=== PATIENT | male | born 1955 | race Hispanic/Latino ===

== ENCOUNTER 2021-10-25 10:06 | Emergency (ER) | payer OTHER ==
--- OUTSIDE RECORDS SUMMARY | 2021-10-25 10:08 | XMS REPORT | Continuity of Care Document ---
:1955 Author Organization [facility] Address [address] [place] [address] Dr. Broderick [address] [place] [id number] Care Team Providers Name Role Phone LUIS ALFREDO Attending Clinician Unavailable LUIS ALFREDO Admitting Clinician Unavailable Payers Payer Name Policy Type Policy Number Effective Date Expiration Date S ource Problems This patient has no known problems. Allergies, Adverse Reactions, Alerts This patient has no known allergies or adverse reactions. Medications This patient has no known medications. Procedures This patient has no known procedures. Encounters Start End Encounter Admission Attending Care Care Encounter Source Date/Time Date/Time Type Type Clinicians Facility Department ID 2021-08-22 2021-08-22 Outpatient [facility] [address] 02:28:00 02:28:00 [id number] 2021-04-27 2021-04-27 Outpatient [facility] [address] 11:29:00 11:29:00 HN [id number] Results This patient has no known results.
[2021-10-25 10:57] LABS: Absolute Lymphocytes (CBC) 0.3 K/uL (0.7-4.9); Hematocrit 32.5 % (39.6-49.0); Lymphocytes % 5.9 % (15.3-44.8); RBC Red Blood Cell Count 3.72 M/uL (4.33-5.43)
[2021-10-25] MEDS ORDERED: HYDROMORPHONE HCL 1 MG/ML INJ ONE (10:58)
[2021-10-25] MEDS ORDERED: NA CHLORIDE 0.9% 1,000 ML ONE (10:59)
[2021-10-25] MEDS ORDERED: ONDANSETRON 4 MG/2 ML VIAL ONE (10:59)
[2021-10-25 11:24] LABS: Potassium 4.1 mmol/L (3.5-5.1)
[2021-10-25 11:46] LABS: Blood Morphology Comment NOT SEEN (NOT SEEN); Platelet Estimate DECR
--- NOTE | 2021-10-25 11:53 | RAD REPORT ---
EXAM DESCRIPTION: CT - Head Brain Wo Cont - 10/25/2021 11:41 am CLINICAL HISTORY: Brain/LABEL PASTER neoplasm, monitor COMPARISON: No comparisons TECHNIQUE: All CT scans are performed using dose optimization technique as appropriate and may inclu de automated exposure control or mA/KV adjustment according to patient size. FINDINGS: No intracranial hemorrhage, hydrocephalus or extra-axial fluid collection.No areas of brai n edema or evidence of midline shift. Small foci of white matter hypoattenuation within the deep whit e matter of the frontal lobes bilaterally. Mild chronic small vessel ischemic changes. The paranasal sinuses and mastoids are clear. The calvarium is intact. IMPRESSION: No acute intracranial abnormality. 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 Background of chronic small vessel ischemic changes.
--- NOTE | 2021-10-25 12:05 | RAD REPORT ---
EXAM DESCRIPTION: CT - Soft Tissue Neck W/Contr CLINICAL HISTORY: dysphagia, s/p radiation COMPARISON: No comparisons TECHNIQUE All CT scans are performed using dose optimization technique as appropriate and may includ e automated exposure control or mA/KV adjustment according to patient size. FINDINGS: Postradiation changes are present at the neck. Mottled fluid and air in the regio no parot id or submandibular masses are identified. No lymphadenopathy is identified. The lung apices are sanju r. The thyroid nodules. N of the right tonsillar fossa. This is nonspecific. No fluid collections sima ntified. No radiopaque foreign bodies. Mild thickening within the maxillary sinus on the right. Multilevel degenerative changes are present in the spine. IMPRESSION: Mottled air and fluid at the right tonsillar fossa is nosnpecific. This could reflect tr eatment related changes. Recommend direct inspection. No other specific CT findings to explain dyspha anthony.
--- NOTE | 2021-10-25 12:34 | ER ---
Nurse's Notes [facility] Name: Sam Camacho Age: 66 yrs Sex: Male : 1955 Arrival Date: 10/25/2021 Time: 10:07 Bed 4 Private MD: Diagnosis: Dysphagia, unspecified;Dehydration Presentation: 10/25 10:24 Chief complaint: Patient states: "I have cancer and tumors in my head and I haven't aa5 been able to sleep because the pain in my head is so bad". Pt c/o pain to right side of head since July but got worse 2 days ago. Pt also c/o pain to right jaw pain, reports jaw surgery back in July 2021. 10:24 Coronavirus screen: At this time, the client does not indicate any symptoms associated aa5 with coronavirus-19. Ebola Screen: No symptoms or risks identified at this time. Initial Sepsis Screen: Does the patient meet any 2 criteria? No. Patient's initial sepsis screen is negative. Does the patient have a suspected source of infection? No. Patient's initial sepsis screen is negative. Risk Assessment: Do you want to hurt yourself or someone else? Patient reports no desire to harm self or others. Onset of symptoms was October 23, 2021. 10:24 Acuity: JOANNE 3 aa5 10:24 Method Of Arrival: Ambulatory aa5 Triage Assessment: 10:30 Headache History: The patient has had previous headaches and this one is similar to bp previous episodes. General: Appears in no apparent distress. uncomfortable, Behavior is cooperative, appropriate for age, anxious. Pain: Complains of pain in head Pain currently is 8 out of 10 on a pain scale. Pain began 2-3 days ago. Also complains of no other associated symptoms. EENT: No deficits noted. Neuro: Reports headache. Cardiovascular: No deficits noted. Respiratory: No deficits noted. GI: No signs and/or symptoms were reported involving the gastrointestinal system. : No signs and/or symptoms were reported regarding the genitourinary system. Derm: No deficits noted. Musculoskeletal: No deficits noted. Historical: - Allergies: 10:27 No Known Allergies; aa5 - PMHx: 10:27 Brain Tumors; Cancer; Hypertensive disorder; aa5 10:30 Chemotherapy; Radiation; aa5 - PSHx: 10:27 Jaw Surgery; aa5 - Immunization history:: Adult Immunizations unknown. - Social history:: Smoking status: Patient reports the use of cigarette tobacco products, denies chronic smoking, but will smoke occasionally. - Family history:: not pertinent. - Hospitalizations: : No recent hospitalization is reported. Screenin:30 Abuse screen: Denies threats or abuse. Denies injuries from another. Nutritional bp screening: No deficits noted. Tuberculosis screening: No symptoms or risk factors identified. Fall Risk None identified. Assessment: 10:30 General: SEE TRIAGE NOTE. bp 11:30 Reassessment: No changes from previously documented assessment. Patient and/or family bp updated on plan of care and expected duration. Pain level reassessed. 12:54 Reassessment: PT D/C HOME AMBULATORY, DX WITH HEADACHE. bp Vital Signs: 10:24 BP 153 / 112; Pulse 70; Resp 20 S; Temp 98.9(O); Pulse Ox 100% on R/A; Weight 48.53 kg aa5 (R); Height 5 ft. 7 in. (170.18 cm) (R); 11:30 BP 147 / 101; Pulse 72; Resp 16; Pulse Ox 100% ; bp 12:30 BP 151 / 99; Pulse 75; Resp 17; Pulse Ox 99% ; bp 10:24 Body Mass Index 16.76 (48.53 kg, 170.18 cm) aa5 ED Course: 10:07 Patient arrived in ED. am2 10:24 Pepe Pruett MD is Attending Physician. rn 10:24 Arm band placed on. aa5 10:27 Triage completed. aa5 10:46 Denis Perry, RN is Primary Nurse. bp 10:50 Initial lab(s) drawn, by mo, sent to lab. Inserted saline lock: 20 gauge in right em1 antecubital area, using aseptic technique. Blood collected. 11:43 CT Head Brain wo Cont In Process Unspecified. EDMS 11:44 CT Soft Tissue Neck W/contr In Process Unspecified. EDMS 12:30 Patient has correct armband on for positive identification. Bed in low position. Call bp light in reach. Side rails up X2. 12:30 No provider procedures requiring assistance completed. IV discontinued, intact, bp bleeding controlled, No redness/swelling at site. Pressure dressing applied. 12:33 Jessica Parra MD is Referral Physician. rn Administered Medications: 11:00 Drug: Dilaudid (HYDROmorphone) 1 mg Route: IVP; Site: right antecubital; bp 11:00 Drug: Zofran (Ondansetron) 4 mg Route: IVP; Site: right antecubital; bp 11:00 Drug: NS 0.9% 1000 ml Route: IV; Rate: 1000 ml; Site: right antecubital; bp Medication: 12:30 VIS not applicable for this client. bp Outcome: 12:30 Discharged to home ambulatory. bp 12:30 Condition: stable 12:30 Discharge instructions given to patient, Instructed on discharge instructions, follow up and referral plans. medication usage, Demonstrated understanding of instructions, follow-up care, medications, Prescriptions given X 2. 12:34 Discharge ordered by . rn 12:57 Patient left the ED. bp Signatures: Dispatcher [employer] EDMS Pepe Pruett MD MD rn Martinez, Eric em1 Sona Christian RN RN aa5 Eva Cam am2 Denis Perry RN RN bp Corrections: (The following items were deleted from the chart) 10:28 10:24 Chief complaint: Patient states: "I have cancer and tumors in my head and I aa5 haven't been able to sleep because the pain in my head is so bad". Pt c/o pain to right side of head. Pt reports he takes Morphine and Dilaudid pills at home. aa5 10:29 10:24 Chief complaint: Patient states: "I have cancer and tumors in my head and I aa5 haven't been able to sleep because the pain in my head is so bad". Pt c/o pain to right side of head. aa5 10:30 10:24 Chief complaint: Patient states: "I have cancer and tumors in my head and I aa5 haven't been able to sleep because the pain in my head is so bad". Pt c/o pain to right side of head. Pt also c/o pain to right jaw pain, reports jaw surgery back in July 2021. aa5 12:57 12:30 Discharge instructions given to patient, Instructed on discharge instructions, bp follow up and referral plans. Demonstrated understanding of instructions, follow-up care, bp
--- NOTE | 2021-10-25 12:34 | EDPHYS ---
Physician Documentation [facility] Name: Sam Camacho Age: 66 yrs Sex: Male : 1955 Arrival Date: 10/25/2021 Time: 10:07 Bed 4 Private MD: ED Physician Pepe Pruett HPI: 10/25 12:21 This 66 yrs old Male presents to ER via Ambulatory with complaints of rn headache, trouble swallowing. 12:22 Pt reports [facility], has been having daily headache rn and trouble swallowing since July, no acute changes. Reports some days headache gets bad and has to get pain medication and no longer has pain medication prescribed. States knows someone that sells norco for $10 a pill. Denies acute changes in headache or swallowing problems. . Onset: The symptoms/episode began/occurred at an unknown time. Severity of symptoms: At their worst the symptoms were moderate in the emergency department the symptoms are unchanged. The patient has experienced similar episodes in the past, chronically. The patient has not recently seen a physician. Historical: - Allergies: 10:27 No Known Allergies; aa5 - PMHx: 10:27 Brain Tumors; Cancer; Hypertensive disorder; aa5 10:30 Chemotherapy; Radiation; aa5 - PSHx: 10:27 Jaw Surgery; aa5 - Immunization history:: Adult Immunizations unknown. - Social history:: Smoking status: Patient reports the use of cigarette tobacco products, denies chronic smoking, but will smoke occasionally. - Family history:: not pertinent. - Hospitalizations: : No recent hospitalization is reported. ROS: 12:22 Constitutional: Negative for fever, chills, and weight loss, Eyes: Negative for injury, rn pain, redness, and discharge, ENT: + pain with swallowing for months, able to drink liquids, has been on ensure since july Neck: Negative for injury, and swelling, Cardiovascular: Negative for chest pain, palpitations, and edema, Respiratory: Negative for shortness of breath, cough, wheezing, and pleuritic chest pain, Abdomen/GI: Negative for abdominal pain, nausea, vomiting, diarrhea, and constipation, MS/Extremity: Negative for injury and deformity, Skin: Negative for injury, rash, and discoloration, Neuro: Negative for weakness, numbness, tingling, and seizure. Exam: 12:22 Constitutional: This is a well developed, well nourished patient who is awake, alert, rn and in no acute distress. Head/Face: Normocephalic, atraumatic. Eyes: Pupils equal round and reactive to light, extra-ocular motions intact. Periorbital areas with no swelling, redness, or edema. Neck: + post radiation changes right external neck, no crepitus Cardiovascular: Regular rate and rhythm. No pulse deficits. Respiratory: No increased work of breathing, no retractions or nasal flaring. Abdomen/GI: Soft, non-tender Skin: Warm, dry with normal turgor. Normal color with no rashes, no lesions, and no evidence of cellulitis. MS/ Extremity: Pulses equal, no cyanosis. Neurovascular intact. Full, normal range of motion. Equal circumference. Neuro: Awake and alert, GCS 15, oriented to person, place, time, and situation. Cranial nerves II-XII grossly intact. Motor strength 5/5 in all extremities. Sensory grossly intact. Cerebellar exam normal. Normal gait. Vital Signs: 10:24 BP 153 / 112; Pulse 70; Resp 20 S; Temp 98.9(O); Pulse Ox 100% on R/A; Weight 48.53 kg aa5 (R); Height 5 ft. 7 in. (170.18 cm) (R); 11:30 BP 147 / 101; Pulse 72; Resp 16; Pulse Ox 100% ; bp 12:30 BP 151 / 99; Pulse 75; Resp 17; Pulse Ox 99% ; bp 10:24 Body Mass Index 16.76 (48.53 kg, 170.18 cm) aa5 MDM: 10:24 Patient medically screened. rn 12:31 Differential Diagnosis post radiation changes, infection, tonsillitis. Data reviewed: rn vital signs, nurses notes, lab test result(s), radiologic studies, CT scan, and as a result, I will discharge patient. Counseling: I had a detailed discussion with the patient and/or guardian regarding: the historical points, exam findings, and any diagnostic results supporting the discharge/admit diagnosis, lab results, radiology results, the need for outpatient follow up, to return to the emergency department if symptoms worsen or persist or if there are any questions or concerns that arise at home. Response to treatment: the patient's symptoms have mildly improved after treatment, and as a result, I will discharge patient. Special discussion: I discussed with the patient/guardian in detail that at this point there is no indication for admission to the hospital. It is understood, however, that if the symptoms persist or worsen the patient needs to return immediately for re-evaluation. Based on the history and exam findings, there is no indication for further emergent testing or inpatient evaluation. I discussed with the patient/guardian the need to see the ENT specialist for further evaluation of the symptoms. ED course: Pt reevaluated following results, shows nonspecific right tonsillar fossa fluid/inflammation that could be post radiation changes, but unclear. Afebrile and patient still denies acute changes. Will start on abx and recommend urgent ENT f/u for direct visualization, told him to either get back with ENT at [facility] and will give info for Dr. Parra here if unable to get into [facility]. Talked to him about possibility of recurrence/cancer/infection. Return precautions given and understood.. 10/25 10:38 Order name: CBC with Diff; Complete Time: 11:54 rn 10/25 10:38 Order name: Basic Metabolic Panel; Complete Time: 11:30 rn 10/25 10:38 Order name: CT Head Brain wo Cont; Complete Time: 11:54 rn 10/25 10:38 Order name: CT Soft Tissue Neck W/contr; Complete Time: 12:06 rn 10/25 11:46 Order name: Manual Differential; Complete Time: 11:54 EDWA 10/25 10:38 Order name: IV Start; Complete Time: 10:50 rn Administered Medications: 11:00 Drug: Dilaudid (HYDROmorphone) 1 mg Route: IVP; Site: right antecubital; bp 11:00 Drug: Zofran (Ondansetron) 4 mg Route: IVP; Site: right antecubital; bp 11:00 Drug: NS 0.9% 1000 ml Route: IV; Rate: 1000 ml; Site: right antecubital; bp Disposition Summary: 10/25/21 12:34 Discharge Ordered Location: Home rn Problem: an ongoing problem rn Symptoms: have improved rn Condition: Stable rn Diagnosis - Dysphagia, unspecified rn - Dehydration rn Followup: rn - With: Jessica Parra MD - When: 2 - 3 days - Reason: Recheck today's complaints, Re-evaluation by your physician Discharge Instructions: - Discharge Summary Sheet rn - Dehydration, Adult rn - Dysphagia rn Forms: - Medication Reconciliation Form rn - Thank You Letter rn - Antibiotic internal communications writer - Prescription Opioid Use rn Prescriptions: - Clindamycin HCl 300 mg Oral Capsule - take 1 capsule by ORAL route every 6 hours for 10 days; 40 capsule; Refills: 0, rn Product Selection Permitted - Tramadol 50 mg Oral Tablet - take 1 tablet by ORAL route every 8 hours as needed; 12 tablet; Refills: 0, rn Product Selection Permitted Signatures: Dispatcher [employer] EDPepe Thorpe MD MD rn Calderon, Audri RN RN aa5 Denis Perry RN RN bp
[2021-10-25 13:04] VITALS: TEMP 98.9
[2021-10-25 13:08] VITALS: BP 151/99; O2SAT 99
== END 2021-10-25 12:57 | disposition home or self-care (01) ==
LOC: ER 10:06
DX: E86.0 Dehydration (principal); C71.9 Malignant neoplasm of brain, unspecified; I10 Essential (primary) hypertension; F17.210 Nicotine dependence, cigarettes, uncomplicated
CPT/HCPCS: 85025; 80048; 36415; 70450; 70491; 96375; 96374; 99284; Q9967; J1170; J7030; J2405

== ENCOUNTER 2021-10-29 09:02 | Emergency (ER) | payer OTHER ==
--- OUTSIDE RECORDS SUMMARY | 2021-10-29 09:05 | XMS REPORT | Continuity of Care Document ---
:1955 Author Organization [facility] Address [address] [place] [address] Dr. Broderick [address] [place] [id number] Care Team Providers Name Role Phone PRABHAKARVELMA Attending Clinician Unavailable IVANCANDIDOISABELLA Admitting Clinician Unavailable Payers Payer Name Policy [...] Department ID 2021-08-22 2021-08-22 Outpatient [facility] [address] 02:28:00 02:28:00 [id number] 2021-04-27 2021-04-27 [facility]patient [facility] [address] 11:29:00 11:29:00 HN [id number] Results This patient has no known results.
--- NOTE | 2021-10-29 11:24 | RAD REPORT ---
EXAM DESCRIPTION: CT - Head Brain Wo Cont - 10/29/2021 11:15 am CLINICAL HISTORY: Headache COMPARISON: October 25, 2021 TECHNIQUE: Computed axial tomography of the head was obtained. IV contrast was not requested. All CT scans are performed using dose optimization technique as appropriate and may include automated exposure control or mA/KV adjustment according to patient size. FINDINGS: An intracranial bleed is not seen . The ventricles are normal in caliber. No extra-axial fluid collection is noted. Small calcification with small surrounding low-density area left cerebellum unchanged. No surrounding edema. Small low-density areas within the deep white matter right frontal lobe probably old infarcts. . Fluid within the sinuses/ mastoids is not seen. IMPRESSION: No acute intracranial abnormality is seen. If patient's symptoms persist MRI of the bra in would be recommended.
--- NOTE | 2021-10-29 12:58 | EDPHYS ---
Physician Documentation [facility] Name: Sam Camacho Age: 66 yrs Sex: Male : 1955 Arrival Date: 10/29/2021 Time: 09:12 Bed 9 Private MD: ED Physician Jefry Harris HPI: 10/29 10:13 This 66 yrs old Male presents to ER via Ambulatory with complaints of Headache.cp 10:15 The patient complains of pain to the right side of head. cp 10:15 The patient describes the headache as aching, waxing and waning. Onset: The cp symptoms/episode began/occurred since [place]. Associated signs and symptoms: Pertinent negatives: altered mental status, dizziness, fever, neck stiffness, paresthesias, sinus congestion, sinus tenderness, vision loss, weakness. Severity of symptoms: in the emergency department the pain is unchanged, despite home interventions. Patient reports history of brain tumor with recent surgery in July 2021. Patient reports he is a patient at the [facility] and has been prescribed Tylenol #3s for headache pain in the past. Historical: - Allergies: 09:35 No Known Allergies; jl7 - PMHx: 09:35 Brain tumors; Cancer; chemotherapy; Hypertensive disorder; radiation; jl7 - PSHx: 09:35 jaw surgery; jl7 - Immunization history:: Client reports receiving the 2nd dose of the Covid vaccine. - Social history:: Smoking status: Patient reports the use of cigarette tobacco products. ROS: 10:20 Constitutional: Negative for body aches, chills, fever, poor PO intake. cp 10:20 Eyes: Negative for injury, pain, redness, and discharge. cp 10:20 ENT: Negative for drainage from ear(s), ear pain, sore throat, difficulty swallowing, difficulty handling secretions. 10:20 Cardiovascular: Negative for chest pain, edema, palpitations. 10:20 Respiratory: Negative for cough, shortness of breath, wheezing. 10:20 Abdomen/GI: Negative for abdominal pain, nausea, vomiting, and diarrhea, constipation. 10:20 Neuro: Positive for headache, Negative for altered mental status, weakness. 10:20 All other systems are negative. Exam: 10:25 Head/Face: Normocephalic, atraumatic. cp 10:25 Constitutional: The patient appears in no acute distress, alert, awake, non-diaphoretic, non-toxic, well developed, well nourished. 10:25 Eyes: Periorbital structures: appear normal, Pupils: equal, round, and reactive to light and accomodation, Extraocular movements: intact throughout, Conjunctiva: normal, no exudate, no injection, Sclera: no appreciated abnormality, Lids and lashes: appear normal, bilaterally. 10:25 ENT: External ear(s): are unremarkable, Ear canal(s): are normal, clear, TM's: dullness, bilaterally, Nose: is normal, Mouth: Lips: moist, Oral mucosa: pink and intact, moist, Posterior pharynx: Airway: no evidence of obstruction, patent. 10:25 Neck: ROM/movement: is normal, is supple, without pain, no range of motions limitations.cp 10:25 Chest/axilla: Inspection: normal. 10:25 Cardiovascular: Rate: normal, Rhythm: regular. 10:25 Respiratory: the patient does not display signs of respiratory distress, Respirations: normal, no use of accessory muscles, no retractions, labored breathing, is not present, Breath sounds: are clear throughout, no decreased breath sounds. 10:25 Abdomen/GI: Exam negative for discomfort, distension, guarding, Inspection: abdomen appears normal. 10:25 Back: pain, is absent, ROM is normal. 10:25 Neuro: Orientation: to person, place \T\ time. Mentation: is normal, Motor: moves all fours, strength is normal, Sensation: no obvious gross deficits, Gait: is steady, at a normal pace, without difficulty. Vital Signs: 09:35 BP 173 / 98; Pulse 72; Resp 17; Temp 98.8; Pulse Ox 100% ; Weight 48.08 kg; Height 5 jl7 ft. 7 in. (170.18 cm); Pain 10/10; 09:35 Body Mass Index 16.60 (48.08 kg, 170.18 cm) jl7 MDM: 12:00 Data reviewed: vital signs, nurses notes, radiologic studies, CT scan. cp 12:07 Patient medically screened. cp 12:56 Counseling: I had a detailed discussion with the patient and/or guardian regarding: the cp historical points, exam findings, and any diagnostic results supporting the discharge/admit diagnosis, the presence of at least one elevated blood pressure reading (>120/80) during this emergency department visit, radiology results, the need for outpatient follow up, a neckties painter, to return to the emergency department if symptoms worsen or persist or if there are any questions or concerns that arise at home. 12:56 ED course: VSS. Patient requesting IM shot for headache pain but admits to driving self cp to ED. Unable to have someone transport him home. Spoke with him about narcotic screen showing frequent fill of prescriptions for pain medications. Will not provide RX for tylenol #3 and recommend pain management f/u. 10/29 10:15 Order name: CT Head Brain wo Cont; Complete Time: 12:05 cp 10/29 12:06 Interpretation: Report reviewed. cp Administered Medications: 12:44 Not Given (Pt does not have a ridee): morphine 4 mg IM once ld1 Disposition: 15:23 Co-signature as Attending Physician, Jefry Harris MD I agree with the assessment and kdr plan of care. Disposition Summary: 10/29/21 12:57 Discharge Ordered Location: Home cp Problem: chronic cp Symptoms: have improved cp Condition: Stable cp Diagnosis - Headache cp Followup: cp - With: Brayden Harris DO - When: 2 - 3 days - Reason: pain management Discharge Instructions: - Discharge Summary Sheet cp - General Headache Without Cause cp Forms: - Medication Reconciliation Form cp - Thank You Letter cp - Antibiotic Education cp - Prescription Opioid Use cp Prescriptions: - Fioricet 50-300-40 mg Oral capsule - take 1 capsule by ORAL route every 4 hours as needed; 20 capsule; Refills: 0, cp Product Selection Permitted Signatures: Dispatcher [employer] EDMS Jefry Harris MD MD kdr Jorje Dunne PA PA cp Marv Malik RN RN jl7 Samanta Marin RN ld1
--- NOTE | 2021-10-29 12:58 | ER ---
Nurse's Notes [facility] Name: Sam Camacho Age: 66 yrs Sex: Male : 1955 Arrival Date: 10/29/2021 Time: 09:12 Bed 9 Private MD: Diagnosis: Headache Presentation: 10/29 09:35 Chief complaint: Patient states: WALL since July, hx on brain tumors, seen here 1 jl7 week ago and the tramadol isn't working, pt requesting a shot to take the pain away, pt did drive himself and cannot get a ride home. Coronavirus screen: At this time, the client does not indicate any symptoms associated with coronavirus-19. Ebola Screen: No symptoms or risks identified at this time. Initial Sepsis Screen: Does the patient meet any 2 criteria? No. Patient's initial sepsis screen is negative. Does the patient have a suspected source of infection? No. Patient's initial sepsis screen is negative. Risk Assessment: Do you want to hurt yourself or someone else? Patient reports no desire to harm self or others. Onset of symptoms was July 2021. 09:35 Method Of Arrival: Ambulatory [facility] 09:35 Acuity: JOANNE 4 7 Triage Assessment: 09:35 Headache History: The patient has had previous headaches and this one is similar to 7 previous episodes. General: Appears in no apparent distress. uncomfortable, Behavior is calm, cooperative, appropriate for age. Pain: Complains of pain in WALL Pain currently is 10 out of 10 on a pain scale. Pain began gradually, Also complains of no other associated symptoms. Neuro: Level of Consciousness is awake, alert, obeys commands, Oriented to person, place, time, situation, Moves all extremities. Full function Gait is steady, Speech is normal, Facial symmetry appears normal. Historical: - Allergies: 09:35 No Known Allergies; jl7 - PMHx: 09:35 Brain tumors; Cancer; chemotherapy; Hypertensive disorder; radiation; jl7 - PSHx: 09:35 jaw surgery; jl7 - Immunization history:: Client reports receiving the 2nd dose of the Covid vaccine. - Social history:: Smoking status: Patient reports the use of cigarette tobacco products. Screenin:15 Abuse screen: Denies threats or abuse. Denies injuries from another. Nutritional ld1 screening: No deficits noted. Tuberculosis screening: No symptoms or risk factors identified. Fall Risk None identified. Assessment: 12:15 General: Appears in no apparent distress. comfortable, Behavior is calm, cooperative, ld1 appropriate for age. Pain: Complains of pain in face Pain does not radiate. Pain currently is 6 out of 10 on a pain scale. Quality of pain is described as throbbing. Neuro: Level of Consciousness is awake, alert, obeys commands, Oriented to person, place, time, situation. Cardiovascular: Capillary refill < 3 seconds Patient's skin is warm and dry. Respiratory: Airway is patent Respiratory effort is even, unlabored, Respiratory pattern is regular, symmetrical. GI: Abdomen is flat, non-distended. : No signs and/or symptoms were reported regarding the genitourinary system. EENT: No signs and/or symptoms were reported regarding the EENT system. Derm: No signs and/or symptoms reported regarding the dermatologic system. Musculoskeletal: No signs and/or symptoms reported regarding the musculoskeletal system. 13:01 Reassessment: Pt was attempting to arrange a ride home, became upset and left without jl7 discharge papers. Vital Signs: 09:35 BP 173 / 98; Pulse 72; Resp 17; Temp 98.8; Pulse Ox 100% ; Weight 48.08 kg; Height 5 jl7 ft. 7 in. (170.18 cm); Pain 10/10; 09:35 Body Mass Index 16.60 (48.08 kg, 170.18 cm) jl7 ED Course: 09:12 Patient arrived in ED. am2 09:35 Arm band placed on right wrist. jl7 09:38 Triage completed. jl7 10:08 Jorje Dunne PA is PHCP. cp 10:08 Jefry Harris MD is Attending Physician. cp 11:16 CT Head Brain wo Cont In Process Unspecified. EDMS 12:15 Samanta Marin, MANUEL is Primary Nurse. ld1 12:15 Patient has correct armband on for positive identification. Placed in gown. Bed in low ld1 position. Call light in reach. Side rails up X2. court monitor on. Pulse ox on. NIBP on. Door closed. Noise minimized. 12:15 No provider procedures requiring assistance completed. ld1 12:55 Brayden Harris DO is Referral Physician. cp 12:58 Patient did not have IV access during this emergency room visit. ld1 Administered Medications: 12:44 Not Given (Pt does not have a ridee): morphine 4 mg IM once ld1 Medication: 12:15 VIS not applicable for this client. ld1 Outcome: 12:57 Discharge ordered by MD. cp 12:58 Discharged to home ambulatory. ld1 12:58 Condition: stable 12:58 Discharge instructions given to Pt became agitated and left without discharge papers and prescription Instructed on n/a Demonstrated understanding of n/a 12:58 Patient left the ED. ld1 Signatures: Dispatcher [employer] EDMS Jorje Dunne PA PA cp Marv Malik RN RN jl7 Eva Cam Lauren, RN RN ld1 Corrections: (The following items were deleted from the chart) 13:03 12:58 Discharge instructions given to patient, Instructed on discharge instructions, jl7 follow up and referral plans. Demonstrated understanding of instructions, follow-up care, ld1
[2021-10-29 13:03] VITALS: BP 173/98; TEMP 98.8; O2SAT 100
== END 2021-10-29 12:58 | disposition home or self-care (01) ==
LOC: ER 09:02
DX: R51.9 Headache, unspecified (principal); Z86.011 Personal history of benign neoplasm of the brain; I10 Essential (primary) hypertension; Z72.0 Tobacco use
CPT/HCPCS: 70450; 99284

== ENCOUNTER 2022-01-04 18:06 | Emergency (ER) | payer OTHER ==
--- OUTSIDE RECORDS SUMMARY | 2022-01-04 18:09 | XMS REPORT | Continuity of Care Document ---
:1955 Author Organization [facility] t Address [address] [place] [address] Dr. Broderick [address] [place] [id number] Care Team Providers Name Role Phone LUIS ALFREDO Attending Clinician Unavailable IVANCANDIDOISABELLA Admitting Clinician Unavailable Payers Payer Name Policy Type Policy Number Effective Date Expiration Date S [facility] [id number] 2021 (MEDICARE 00:00:00 REPLACEMENT HMO) Problems This patient has no known problems. Allergies, Adverse Reactions, Alerts This patient has no known allergies or adverse reactions. Medications This patient has no known medications. Procedures This patient has no known procedures. Encounters Start End Encounter Admission Attending Care Care Encounter Source Date/Time Date/Time Type Type Clinicians Facility Department ID 2021-11-03 2021-11-03 Outpatient [facility] [id number] [facility]:01[facility]00 09:01:00 [id number] [facility] 2021-08-22 2021-08-22 Outpatient [facility] [address] 02:28:00 02:28:00 HN [id number] 2021-04-27 2021-04-27 [facility] [address] 11:29:00 11:29:00 HN [id number] [facility] Results This patient has no known results.
[2022-01-04] MEDS ORDERED: NA CHLORIDE 0.9% 1,000 ML ONE (18:55)
[2022-01-04] MEDS ORDERED: NA CHLORIDE 0.9% 500 ML ONE (18:55)
[2022-01-04 18:57] LABS: Absolute Lymphocytes (CBC) 0.5 K/uL (0.7-4.9); Hematocrit 23.2 % (39.6-49.0); Lymphocytes % 3.8 % (15.3-44.8); MCV 85.6 fL (80-100); MPV 5.6 fL (7.6-11.3)
[2022-01-04 18:58] LABS: Protime INR 1.31
[2022-01-04 19:07] LABS: SARS-CoV-2 Antigen Rapid Res Negative (Negative)
[2022-01-04 19:13] LABS: Albumin 2.7 g/dL (3.4-5.0); Bilirubin Direct 0.2 mg/dL (0-0.2); Bilirubin Total 0.5 mg/dL (0.2-1.0); Magnesium 1.8 mg/dL (1.8-2.4); Potassium 3.9 mmol/L (3.5-5.1); Protein, Total 7.4 g/dL (6.4-8.2); Troponin High Sensitivity 3.9 pg/mL (<58.9)
--- NOTE | 2022-01-04 19:40 | ER ---
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 Last chemo and radiation was July 2021. Coronavirus screen: At this time, the client does not indicate any symptoms associated with coronavirus-19. Ebola Screen: No symptoms or risks identified at this time. Initial Sepsis Screen: Does the patient meet any 2 criteria? No. Patient's initial sepsis screen is negative. Does the patient have a suspected source of infection? No. Patient's initial sepsis screen is negative. Risk Assessment: Do you want to hurt yourself or someone else? Patient reports no desire to harm self or others. Onset of symptoms was January 04, 2022 at 18:10. 18:10 Method Of Arrival: EMS: [facility] ld1 18:10 Acuity: JOANNE 3 ld1 Triage Assessment: 18:10 General: Appears in no apparent distress. comfortable, Behavior is calm, cooperative, ld1 appropriate for age. Pain: Denies pain. EENT: Reports bleeding in mouth. Neuro: Level of Consciousness is awake, alert, obeys commands, Oriented to person, place, time, situation. Cardiovascular: Capillary refill < 3 seconds Patient's skin is warm and dry. Respiratory: Airway is patent Respiratory effort is even, unlabored. GI: Abdomen is flat, non-distended. : No signs and/or symptoms were reported regarding the genitourinary system. Derm: No signs and/or symptoms reported regarding the dermatologic system. Musculoskeletal: No signs and/or symptoms reported regarding the musculoskeletal system. Historical: - Allergies: 18:10 No Known Allergies; ld1 - PMHx: 18:10 Brain tumors; Cancer; chemotherapy; Hypertensive disorder; radiation; ld1 - PSHx: 18:10 jaw surgery; ld1 - Immunization history:: Adult Immunizations up to date, Client reports having NOT received the Covid vaccine. - Social history:: Smoking status: Patient denies any tobacco usage or history of. Patient/guardian denies using alcohol. - Family history:: not pertinent. Screenin:17 Abuse screen: Denies threats or abuse. Denies injuries from another. Nutritional ld1 screening: No deficits noted. Tuberculosis screening: No symptoms or risk factors identified. Fall Risk None identified. Assessment: 18:17 Reassessment: See triage assessment. ld1 Vital Signs: 18:16 BP 147 / 98; Pulse 92; Resp 23; Temp 97.9(TE); Pulse Ox 100% on R/A; Weight 52.16 kg; ld1 Height 5 ft. 5 in. (165.10 cm); Pain 10/10; 18:16 Body Mass Index 19.14 (52.16 kg, 165.10 cm) ld1 ED Course: 18:07 Patient arrived in ED. 3 18:08 Samanta Marin RN is Primary Nurse. ld1 18:09 Primary Nurse role handed off by Samanta Marin, MANUEL 3 18:09 Deborah Arreola is Primary Nurse. 3 18:10 Triage completed. ld1 18:10 Arm band placed on right wrist. ld1 18:17 Patient has correct armband on for positive identification. Placed in gown. Bed in low ld1 position. Call light in reach. Side rails up X2. residential monitor on. Pulse ox on. NIBP on. Door closed. Noise minimized. Warm blanket given. 18:17 No provider procedures requiring assistance completed. ld1 18:29 Jorje Galicia MD is Attending Physician. garry 18:45 SARS RAPID Sent. mb7 18:45 Type And Screen Sent. mb7 18:45 Basic Metabolic Panel Sent. mb7 18:45 CBC with Diff Sent. mb7 18:45 LFT's Sent. mb7 18:45 Magnesium Sent. mb7 18:45 NT PRO-BNP Sent. mb7 18:45 PT-INR Sent. mb7 18:46 Troponin HS Sent. mb7 18:46 Maintain EMS IV. Dressing intact. Good blood return noted. Site clean \T\ dry. Gauge \T\ mb 7 site: 20 gauge to left AC.. 18:59 EKG done, by ED staff, reviewed by Jorje Galicia MD. mb7 19:51 EKG completed in triage. Results shown to . ja4 20:00 IV discontinued. ja4 20:07 XRAY Chest (1 view) In Process Unspecified. EDMS Administered Medications: 19:59 Discontinued: NS 0.9% 1000 ml IV at 125 ml/hr continuous ja4 18:52 Drug: NS 0.9% 1000 ml Route: IV; Rate: 125 ml/hr; Site: left antecubital; ld1 19:58 Drug: Zofran (Ondansetron) 4 mg Route: IVP; Site: left forearm; ja4 19:59 Drug: morphine 4 mg Route: IVP; Infused Over: 4 mins; Site: left forearm; ja4 Medication: 18:17 VIS not applicable for this client. ld1 Outcome: 20:00 AMA AMA form signed ja4 20:00 Condition: unchanged 20:00 Discharge instructions given to patient. 20:02 Patient left the ED. ja4 Signatures: Dispatcher [employer] EDMS Jorje Galicia MD MD cha Dibbern, Lauren, RN RN ld1 Beatris Guo [facility] Deborah Arreola 3 Shade Herrera, MANUEL RN ja4
--- NOTE | 2022-01-04 19:40 | EDPHYS ---
Physician Documentation [facility] Name: Sam Camacho Age: 66 yrs Sex: Male : 1955 Arrival Date: 01/04/2022 Time: 18:07 Bed 18 Private MD: ED Physician Jorje Galicia HPI: 01/04 19:25 This 66 yrs old Male presents to ER via EMS with complaints of COUGHING UP garry BLOOD. 19:25 The patient presents with sore throat, dysphagia, of solids, of liquids, of both solids garry and liquids. The patient describes throat pain as constant. Onset: The symptoms/episode began/occurred 4 week(s) ago. The patient presents with NO TEETH , KNOWN ORAL CANCER, TRISMUS, BLEEDING FOR WEEKS. The problem is located in the soft palate, right buccal mucosa and right aspect of posterior pharynx. Duration: The symptoms are continuous, and are steadily getting worse. The patient presents to the emergency department vomiting blood, a moderate amount. Severity of symptoms: At their worst the symptoms were moderate, in the emergency department the symptoms are unchanged. Historical: - Allergies: 18:10 No Known Allergies; ld1 - PMHx: 18:10 Brain tumors; Cancer; chemotherapy; Hypertensive disorder; radiation; ld1 - PSHx: 18:10 jaw surgery; ld1 - Immunization history:: Adult Immunizations up to date, Client reports having NOT received the Covid vaccine. - Social history:: Smoking status: Patient denies any tobacco usage or history of. Patient/guardian denies using alcohol. - Family history:: not pertinent. ROS: 19:25 Constitutional: Negative for fever, chills, and weight loss, Eyes: Negative for injury, garry pain, redness, and discharge, Neck: Negative for injury, pain, and swelling, Cardiovascular: Negative for chest pain, palpitations, and edema, Respiratory: Negative for shortness of breath, cough, wheezing, and pleuritic chest pain, Back: Negative for injury and pain, : Negative for injury, bleeding, discharge, and swelling, MS/Extremity: Negative for injury and deformity, Skin: Negative for injury, rash, and discoloration, Neuro: Negative for headache, weakness, numbness, tingling, and seizure, Psych: Negative for depression, anxiety, suicide ideation, homicidal ideation, and hallucinations, Allergy/Immunology: Negative for hives, rash, and allergies, Endocrine: Negative for neck swelling, polydipsia, polyuria, polyphagia, and marked weight changes, Hematologic/Lymphatic: Negative for swollen nodes, abnormal bleeding, and unusual bruising. 19:25 ENT: Positive for of the right buccal mucosa and right aspect of posterior pharynx, sore throat. Exam: 19:25 Constitutional: This is a well developed, well nourished patient who is awake, alert, garry and in no acute distress. Head/Face: Normocephalic, atraumatic. Eyes: Pupils equal round and reactive to light, extra-ocular motions intact. Lids and lashes normal. Conjunctiva and sclera are non-icteric and not injected. Cornea within normal limits. Periorbital areas with no swelling, redness, or edema. Neck: Trachea midline, no thyromegaly or masses palpated, and no cervical lymphadenopathy. Supple, full range of motion without nuchal rigidity, or vertebral point tenderness. No Meningismus. Chest/axilla: Normal chest wall appearance and motion. Nontender with no deformity. No lesions are appreciated. Cardiovascular: Regular rate and rhythm with a normal S1 and S2. No gallops, murmurs, or rubs. Normal PMI, no JVD. No pulse deficits. Respiratory: Lungs have equal breath sounds bilaterally, clear to auscultation and percussion. No rales, rhonchi or wheezes noted. No increased work of breathing, no retractions or nasal flaring. Abdomen/GI: Soft, non-tender, with normal bowel sounds. No distension or tympany. No guarding or rebound. No evidence of tenderness throughout. Back: No spinal tenderness. No costovertebral tenderness. Full range of motion. Male : Normal genitalia with no discharge or lesions. MS/ Extremity: Pulses equal, no cyanosis. Neurovascular intact. Full, normal range of motion. Neuro: Awake and alert, GCS 15, oriented to person, place, time, and situation. Cranial nerves II-XII grossly intact. Motor strength 5/5 in all extremities. Sensory grossly intact. Cerebellar exam normal. Normal gait. Psych: Awake, alert, with orientation to person, place and time. Behavior, mood, and affect are within normal limits. 19:25 ENT: Posterior pharynx: Tonsils: with erythema, with ulcerations, PT WITH TRISMUS, PAINFUL RIGHT POSTERIOR PHARYNX, OBVIOUS MASS, FRIABLE. 19:25 ECG was reviewed by the Attending Physician. Vital Signs: 18:16 BP 147 / 98; Pulse 92; Resp 23; Temp 97.9(TE); Pulse Ox 100% on R/A; Weight 52.16 kg; ld1 Height 5 ft. 5 in. (165.10 cm); Pain 10/10; 18:16 Body Mass Index 19.14 (52.16 kg, 165.10 cm) ld1 MDM: 18:29 Patient medically screened. garry 19:33 Differential diagnosis: dental abscess, ORAL PHARYNGEAL CANCER, TONGUE CANCER garry gingivostomatitis, laryngitis, lymphoma, peritonsillar abscess retropharyngeal abcess squamous cell carcinoma tonsillitis. Data reviewed: vital signs, nurses notes, lab test result(s), EKG, radiologic studies, plain films. Data interpreted: electronic device monitor: rate is 92 beats/min, rhythm is regular, Pulse oximetry: on room air is 100 %. Test interpretation: by ED physician or midlevel provider: ECG, plain radiologic studies. Counseling: I had a detailed discussion with the patient and/or guardian regarding: the historical points, exam findings, and any diagnostic results supporting the discharge/admit diagnosis, lab results, radiology results, the need to transfer to another facility, for higher level of care, [facility] does not immediately have the required specialist. ED course: PT EXPLAINED . ED course: NESSASARY FOR BLOOD , AND TRANSFER FOR OROPHARYNGEAL CANCER, PT WITH FRIEND TO SUPPORT, PT REFUSED BLOOD PRODUCTS , AND WILL NOT BE TRANSFERRED EVEN IF IT MEANS HIS . 01/04 18:30 Order name: Basic Metabolic Panel; Complete Time: 19:44 [facility] 01/04 18:30 Order name: CBC with Diff; Complete Time: 19:11 [facility] 01/04 18:30 Order name: LFT's; Complete Time: 19:44 [facility] 01/04 18:30 Order name: Magnesium; Complete Time: 19:44 [facility] 01/04 18:30 Order name: NT PRO-BNP; Complete Time: 19:44 [facility] 01/04 18:30 Order name: PT-INR; Complete Time: 19:11 [facility] 01/04 18:30 Order name: Troponin HS; Complete Time: :44 [facility] 01/04 18:30 Order name: XRAY Chest (1 view) [facility] 01/04 18:30 Order name: Type And Screen [facility] 01/04 18:30 Order name: SARS RAPID; Complete Time: 19:11 [facility] 01/04 18:30 Order name: EKG; Complete Time: 18:31 [facility] 01/04 18:30 Order name: Cardiac monitoring; Complete Time: 18:45 [facility] 01/04 18:30 Order name: EKG - Nurse/Tech; Complete Time: 18:52 [facility] 01/04 18:30 Order name: Labs collected and sent; Complete Time: 18:45 [facility] 01/04 18:30 Order name: O2 Per Protocol; Complete Time: 18:45 [facility] 01/04 18:30 Order name: O2 Sat Monitoring; Complete Time: 18:45 [facility] 01/04 19:13 Order name: Transfuse garry EC:25 Rate is 78 beats/min. Rhythm is regular. QRS Witt is Normal. ND interval is normal. QT garry interval is normal. No Q waves. T waves are Normal. Clinical impression: NSR w/ Non-specific ST/T Changes and No evidence of ischemia. Interpreted by me. Reviewed by me. Administered Medications: 19:59 Discontinued: NS 0.9% 1000 ml IV at 125 ml/hr continuous ja4 18:52 Drug: NS 0.9% 1000 ml Route: IV; Rate: 125 ml/hr; Site: left antecubital; ld1 19:58 Drug: Zofran (Ondansetron) 4 mg Route: IVP; Site: left forearm; ja4 19:59 Drug: morphine 4 mg Route: IVP; Infused Over: 4 mins; Site: left forearm; ja4 Disposition Summary: 01/04/22 19:39 Left Against Medical Advice Location: Home garry Problem: an ongoing problem garry Symptoms: have worsened garry Condition: Serious garry Diagnosis - Anemia, unspecified garry - Hemorrhage from throat - OROPHARYNGEAL CANCER, MASS garry - Pain in throat - Trismus garry - Unspecified kidney failure garry Followup: garry - With: Private Physician - When: Upon discharge from the Emergency Department - Reason: Recheck today's complaints, Continuance of care, Re-evaluation by your physician Discharge Instructions: - Discharge Summary Sheet garry - Anemia garry - Throat Cancer garry - Throat Culture garry - Oral Cancer garry Signatures: Dispatcher [employer] EDJorje Loja MD MD cha Dibbern, Lauren, RN RN ld1 Shade Herrera RN RN ja4 Corrections: (The following items were deleted from the chart) 18:45 18:30 IV Saline Lock ordered. garry hamilton 19:39 19:32 Packed RBC Leukored ordered. EDMS EDMS
[2022-01-04] MEDS ORDERED: MORPHINE 4 MG/ML SYR ONE (19:56)
[2022-01-04] MEDS ORDERED: ONDANSETRON 4 MG/2 ML VIAL ONE (19:56)
[2022-01-04 20:46] VITALS: BP 147/98; TEMP 97.9; O2SAT 100
--- NOTE | 2022-01-04 20:49 | RAD REPORT ---
EXAM DESCRIPTION: RAD - Chest Single View - 01/04/2022 8:06 pm CLINICAL HISTORY: COUGH COMPARISON: None TECHNIQUE: AP portable chest image was obtained 01/04/2022 8:06 pm . FINDINGS: No consolidation, mass, failure or volume overload. A few granulomas are seen. No suspicio us lung parenchymal process. Heart and vasculature are normal. No measurable pleural effusion and no pneumothorax. No acute bony abnormality seen. No acute aortic findings suspected. IMPRESSION: No acute cardiopulmonary process.
--- NOTE | 2022-01-05 10:33 | EKG ---
Test Date: 2022-01-04 Test Time: 18:52:05 Pressurization Mechanic: MB MEASUREMENT RESULTS: Intervals: Rate: 78 AL: 156 QRSD: 102 QT: 370 QTc: 421 Jemison: P: 80 AL: 156 QRS: 80 T: 64 INTERPRETIVE STATEMENTS: Normal sinus rhythm Normal ECG No previous ECG available for comparison Electronically Signed On 01-05-22 10:31:23 CDT by Franck Gastelum
== END 2022-01-04 20:02 | disposition left against medical advice (07) ==
LOC: ER 18:06
DX: D64.9 Anemia, unspecified (principal); C14.0 Malignant neoplasm of pharynx, unspecified; R25.2 Cramp and spasm; N19 Unspecified kidney failure; Z53.29 Procedure and treatment not carried out because of patient's decision for other reasons; Z20.822 Contact with and (suspected) exposure to COVID-19
CPT/HCPCS: 85025; 80048; 36415; 86900; 83735; 86850; 85610; 86901; 80076; 84484; 83880; 71045; 87811; J7040; J7030; J2405; 93005

== ENCOUNTER 2022-02-14 04:51 | Emergency (ER) | payer OTHER ==
--- OUTSIDE RECORDS SUMMARY | 2022-02-14 04:55 | XMS REPORT | Continuity of Care Document ---
:1955 Author Organization [facility] t Address [address] [place] [address] Dr. Broderick [address] [place] [id number] Care Team Providers Name Role Phone LUIS ALFREDO Attending Clinician Unavailable PRABHAKARESTEFANÍACANDIDOISABELLA Admitting Clinician Unavailable Payers Payer Name Policy Type Policy Number Effective Date Expiration Date S [facility] [id number] 2021 (MEDICARE 00:00:00 REPLACEMENT HMO) Problems This patient has no known problems. Allergies, Adverse Reactions, Alerts This patient has no known allergies or adverse reactions. Medications This patient has no known medications. Procedures This patient has no known procedures. Encounters Start End Encounter Admission Attending Care Care Encounter Source Date/Time Date/Time Type Type Clinicians Facility Department ID 2021-11-03 2021-11-03 [facility] [id number] [facility]:01:00 09:01:00 [id number] [facility] 2021-08-22 2021-08-22 Outpatient [facility] [address] 02:28:00 02:28:00 HN [id number] 2021-04-27 2021-04-27 Outpatient [facility] [address] 11:29:00 11:29:00 HN [id number] [facility] Results This patient has no known results.
[2022-02-14 05:25] LABS: Absolute Lymphocytes (CBC) 0.6 K/uL (0.7-4.9); Lymphocytes % 8.3 % (15.3-44.8); MCV 76.6 fL (80-100); MPV 6.5 fL (7.6-11.3)
[2022-02-14 05:29] LABS: Hematocrit 20.7 % (39.6-49.0); Protime INR 1.28
[2022-02-14 05:50] LABS: Albumin 2.1 g/dL (3.4-5.0); Bilirubin Total 0.4 mg/dL (0.2-1.0); Potassium 4.2 mmol/L (3.5-5.1); Protein, Total 5.8 g/dL (6.4-8.2)
[2022-02-14 05:52] LABS: SARS-CoV-2 Antigen Rapid Res Negative (Negative)
--- NOTE | 2022-02-14 08:46 | EDPHYS ---
Physician Documentation [facility] Name: Sam Camacho Age: 66 yrs Sex: Male : 1955 Arrival Date: 02/14/2022 Time: 04:54 Bed 4 Private MD: JAYSHREE Physician Jorje Galicia HPI: 02/14 08:35 This 66 yrs old Male presents to ER via EMS with complaints of tounge cancer , garry bleeding and fall. 08:35 The patient or guardian reports injury, pain, swelling. The complaints affect the mouth garry and right jaw. Context of injury: The problem was sustained at a friend's house, resulted from cancer , untreated, pt on hospice. Onset: The symptoms/episode began/occurred just prior to arrival, this morning. Associated signs and symptoms: The patient has no apparent associated signs or symptoms, Loss of consciousness: This patient did not experience any loss of consciousness. The patient presents with pain, swelling, trismus, no active bleeding. Onset: The symptoms/episode began/occurred today. Modifying factors: The symptoms are alleviated by nothing, the symptoms are aggravated by nothing. on hospice, wants blood and to go home. Historical: - Allergies: 12:08 No Known Allergies; tp1 - PMHx: 05:06 Brain tumors; Cancer; chemotherapy; Hypertensive disorder; radiation; as6 - PSHx: 05:06 jaw surgery; as6 - Immunization history:: Client reports having NOT received the Covid vaccine. - Social history:: Smoking status: Patient reports the use of cigarette tobacco products, denies chronic smoking, but will smoke occasionally. - Family history:: not pertinent. ROS: 08:35 Constitutional: Negative for fever, chills, and weight loss, Eyes: Negative for injury, garry pain, redness, and discharge, Neck: Negative for injury, pain, and swelling, Cardiovascular: Negative for chest pain, palpitations, and edema, Respiratory: Negative for shortness of breath, cough, wheezing, and pleuritic chest pain, Abdomen/GI: Negative for abdominal pain, nausea, vomiting, diarrhea, and constipation, Back: Negative for injury and pain, : Negative for injury, bleeding, discharge, and swelling, MS/Extremity: Negative for injury and deformity, Neuro: Negative for headache, weakness, numbness, tingling, and seizure. 08:35 ENT: Positive for sore throat, trismus, dried blood in mouth, hospice. Exam: 08:35 Constitutional: The patient appears lethargic. garry 08:35 Head/face: Noted is abrasion(s), swelling, tenderness, that is mild, of the right jaw. 08:35 Eyes: Conjunctiva: pale. 08:35 ENT: trismus, cant eval op. 08:35 Cardiovascular: Rate: normal, Rhythm: regular, Pulses: Pulses are 4+ in bilateral radial, brachial, femoral, popliteal, posterior tibial and and dorsalis pedis arteries.. 08:35 Respiratory: the patient does not display signs of respiratory distress, Respirations: normal, no acute changes, Breath sounds: decreased breath sounds, rhonchi, that are moderate, are scattered, + upper airway congestion. Respiratory rate: 14 19:13 Constitutional: This is a well developed, well nourished patient who is awake, alert, kdr and in no acute distress. Vital Signs: 05:04 BP 108 / 77; Pulse 79; Resp 24 S; Pulse Ox 100% on R/A; Weight 58 kg (M); Height 5 ft. as6 7 in. (170.18 cm) (R); Pain 9/10; 07:23 BP 114 / 60; Pulse 79; Resp 12; Pulse Ox 99% ; ap3 08:25 BP 117 / 75; Pulse 64; Pulse Ox 98% ; ap3 09:57 BP 129 / 78; Pulse 61; Resp 16; Temp 98.4; Pulse Ox 96% on R/A; tp1 11:00 BP 121 / 77; Pulse 79; Resp 17; Pulse Ox 97% on R/A; tp1 11:45 BP 119 / 83; Pulse 70; Resp 19; Pulse Ox 97% on R/A; tp1 14:25 BP 131 / 86; Pulse 67; Resp 18; Temp 99.0(TE); Pulse Ox 98% on R/A; tp1 14:35 BP 123 / 81; Pulse 64; Resp 16; Temp 98.8(TE); Pulse Ox 98% on R/A; tp1 16:45 BP 135 / 96; Pulse 64; Resp 18; Temp 98.8(TE); Pulse Ox 97% on R/A; tp1 17:51 BP 138 / 91; Pulse 67; Resp 15; Pulse Ox 100% on R/A; tp1 05:04 Body Mass Index 20.03 (58.00 kg, 170.18 cm) as6 Dyer Coma Score: 08:57 Eye Response: none(1). Verbal Response: none(1). Motor Response: none(1). Total: 3. garry MDM: 07:18 Patient medically screened. garry 08:57 Data reviewed: vital signs, nurses notes, EMS record. Data interpreted: Cardiac garry monitor: rate is 0 beats/min, rhythm is pulseless electrical activity, Pulse oximetry: is not applicable for this patient encounter. Test interpretation: by ED physician or midlevel provider: not applicable. Counseling: I had a detailed discussion with the patient and/or guardian regarding:. 02/14 05:07 Order name: CBC with Diff; Complete Time: 05:33 02/14 05:07 Order name: CMP; Complete Time: 06:18 02/14 05:07 Order name: Lipase; Complete Time: 06:18 02/14 05:07 Order name: Type And Screen 02/14 05:07 Order name: SARS RAPID; Complete Time: 06:18 02/14 05:07 Order name: PT-INR; Complete Time: 05:33 02/14 05:07 Order name: Ptt, Activated; Complete Time: 05:33 02/14 06:38 Order name: Packed RBC Leukored EDMS 02/14 08:34 Order name: CT Head C Spine ap3 02/14 08:55 Order name: Bb Add On bd 02/14 05:07 Order name: IV Saline Lock; Complete Time: 05:31 02/14 05:07 Order name: Labs collected and sent; Complete Time: 05:41 02/14 08:47 Order name: Transfuse; Complete Time: 13:05 garry Administered Medications: 09:07 Drug: Zofran (Ondansetron) 4 mg Route: IVP; Site: right antecubital; ap3 11:46 Follow up: Response: No adverse reaction ap3 09:08 Drug: morphine 2 mg Route: IVP; Infused Over: 4 mins; Site: right antecubital; ap3 11:46 Follow up: Response: Pain is decreased ap3 Disposition Summary: 02/14/22 08:46 Discharge Ordered Location: Home garry Problem: an ongoing problem garry Symptoms: have worsened garry Condition: Serious garry Diagnosis - Malignant neoplasm of head, face and neck - terminal garry - Acute posthemorrhagic anemia garry - Weakness - Hospice Care garry Followup: garry - With: Private Physician - When: 2 - 3 days - Reason: Recheck today's complaints, Continuance of care, Re-evaluation by your physician Discharge Instructions: - Discharge Summary Sheet garry - Blood Transfusion, Adult garry - Weakness garry - Hospice garry - Blood Transfusion, Adult, Blue-sp-Jokz garry - Blood Transfusion, Adult, Care After, Gmrw-hw-Mkge garry Forms: - Medication Reconciliation Form garry - Thank You Letter garry - Antibiotic Education garry - Prescription Opioid Use garry Signatures: Dispatcher [employer] EDJorje Loja MD MD cha Rittger, Kevin, MD MD kdr Ballard, Brenda RN RN Eva Corona RN RN ap3 Christian Phillips RN RN as6 Ethel Terry RN RN tp1
--- NOTE | 2022-02-14 08:46 | ER ---
Nurse's Notes [facility] Name: Sam Camacho Age: 66 yrs Sex: Male : 1955 Arrival Date: 02/14/2022 Time: 04:54 Bed 4 Private MD: Diagnosis: Malignant neoplasm of head, face and neck-terminal;Acute posthemorrhagic anemia;Weakness-Hospice Care Presentation: 02/14 05:04 Chief complaint: EMS states: called out for mouth bleeding. on scene pt had dried blood as6 on him and was hypotensive. Coronavirus screen: At this time, the client does not indicate any symptoms associated with coronavirus-19. Ebola Screen: No symptoms or risks identified at this time. Initial Sepsis Screen: Does the patient meet any 2 criteria? No. Patient's initial sepsis screen is negative. Does the patient have a suspected source of infection? No. Patient's initial sepsis screen is negative. Risk Assessment: Do you want to hurt yourself or someone else? Patient reports no desire to harm self or others. Onset of symptoms was February 14, 2022. 05:04 Method Of Arrival: EMS: [facility] as6 05:04 Acuity: JOANNE 2 as6 05:05 Care prior to arrival: Medication(s) given: Normal saline infusion, 500 mL, IV as6 initiated. 18 GA, in the right antecubital area, Glucose check: 79. Historical: - Allergies: 12:08 No Known Allergies; tp1 - PMHx: 05:06 Brain tumors; Cancer; chemotherapy; Hypertensive disorder; radiation; as6 - PSHx: 05:06 jaw surgery; as6 - Immunization history:: Client reports having NOT received the Covid vaccine. - Social history:: Smoking status: Patient reports the use of cigarette tobacco products, denies chronic smoking, but will smoke occasionally. - Family history:: not pertinent. Screenin:08 Abuse screen: Denies threats or abuse. Denies injuries from another. Nutritional as6 screening: No deficits noted. Tuberculosis screening: No symptoms or risk factors identified. Fall Risk None identified. Assessment: 05:06 General: Appears ill, slender, unkempt, Behavior is drowsy. General: pt has dried blood as6 on pants, shirt, face, hair . Pain: Complains of pain in neck. Neuro: Level of Consciousness is lethargic. Respiratory: Respiratory effort is even, unlabored. Derm: Wound noted right sternocleidomastoid Wound is skin tear. 05:48 General: Marylou (BRIAN) [phone]. attempted to call. did not answer . as6 07:22 General: Eva RN was able to contact patients POA. PODomenic requested that she come see ap3 the patient before any medical treatment status decisions were officially made. Provider was updated.. 09:13 Reassessment: pt up from d/c, currently waiting for pt to received blood. vg1 09:30 General: Appears in no apparent distress. comfortable, slender, unkempt, Behavior is tp1 cooperative, drowsy. Neuro: Mcnulty Agitation-Sedation Scale (RASS): -1 Drowsy Level of Consciousness is obeys commands, lethargic, Oriented to person, place, time, situation. Respiratory: Airway is patent Respiratory effort is even, unlabored. Derm: Wound noted Other: skin to tear to the right side of neck. 09:35 Reassessment: BRIAN gave Dr. Hutchinson verbal consent for blood transfusion. tp1 10:35 Reassessment: No changes from previously documented assessment. Patient is alert, tp1 oriented x 3, equal unlabored respirations, skin warm/dry/pink. resting in bed with eyes closed. 11:30 Reassessment: Patient appears in no apparent distress at this time. No changes from tp1 previously documented assessment. Patient is alert, oriented x 3, equal unlabored respirations, skin warm/dry/pink. 11:45 Reassessment: first unit off PRBC administered. see transfusion sheet. tp1 12:00 Reassessment: Patient appears in no apparent distress at this time. No changes from tp1 previously documented assessment. Patient is alert, oriented x 3, equal unlabored respirations, skin warm/dry/pink. no adverse reaction to blood transfusion noted Patient denies pain at this time. 13:14 Reassessment: BRIAN Malena [phone]. tp1 13:24 Reassessment: Patient appears in no apparent distress at this time. No changes from tp1 previously documented assessment. Patient is alert, oriented x 3, equal unlabored respirations, skin warm/dry/pink. resting in bed with eyes closed. 14:35 Reassessment: second unit of PRBC administered, please refer to transfusion record. tp1 14:50 Reassessment: Patient appears in no apparent distress at this time. No changes from tp1 previously documented assessment. Patient is alert, oriented x 3, equal unlabored respirations, skin warm/dry/pink. no adverse reaction to blood transfusion noted. 15:50 Reassessment: Patient appears in no apparent distress at this time. No changes from tp1 previously documented assessment. Patient is alert, oriented x 3, equal unlabored respirations, skin warm/dry/pink. resting with eyes closed. 15:58 Reassessment: Spoke to BRIAN Guy, updated on plan of care. tp1 17:00 Reassessment: Patient appears in no apparent distress at this time. No changes from tp1 previously documented assessment. Patient is alert, oriented x 3, equal unlabored respirations, skin warm/dry/pink. oral fluids offered Patient denies pain at this time. 17:05 Reassessment: Spoke with BRIAN Guy, updated on discharge. tp1 Vital Signs: 05:04 BP 108 / 77; Pulse 79; Resp 24 S; Pulse Ox 100% on R/A; Weight 58 kg (M); Height 5 ft. as6 7 in. (170.18 cm) (R); Pain 9/10; 07:23 BP 114 / 60; Pulse 79; Resp 12; Pulse Ox 99% ; ap3 08:25 BP 117 / 75; Pulse 64; Pulse Ox 98% ; ap3 09:57 BP 129 / 78; Pulse 61; Resp 16; Temp 98.4; Pulse Ox 96% on R/A; tp1 11:00 BP 121 / 77; Pulse 79; Resp 17; Pulse Ox 97% on R/A; tp1 11:45 BP 119 / 83; Pulse 70; Resp 19; Pulse Ox 97% on R/A; tp1 14:25 BP 131 / 86; Pulse 67; Resp 18; Temp 99.0(TE); Pulse Ox 98% on R/A; tp1 14:35 BP 123 / 81; Pulse 64; Resp 16; Temp 98.8(TE); Pulse Ox 98% on R/A; tp1 16:45 BP 135 / 96; Pulse 64; Resp 18; Temp 98.8(TE); Pulse Ox 97% on R/A; tp1 17:51 BP 138 / 91; Pulse 67; Resp 15; Pulse Ox 100% on R/A; tp1 05:04 Body Mass Index 20.03 (58.00 kg, 170.18 cm) as6 Pauly Coma Score: 08:57 Eye Response: none(1). Verbal Response: none(1). Motor Response: none(1). Total: 3. [facility] ED Course: 04:54 Patient arrived in ED. mw2 05:04 Christian Phillips, RN is Primary Nurse. as6 05:05 Triage completed. as6 05:06 Arm band placed on. as6 05:06 Placed in gown. Bed in low position. Call light in reach. Side rails up X2. Client as6 placed on continuous cardiac and pulse oximetry monitoring. NIBP monitoring applied. Warm blanket given. 05:10 Jefry Harris MD is Attending Physician. kdr 05:46 Maintain EMS IV. Dressing intact. Good blood return noted. Site clean \T\ dry. Gauge \T\ as 6 site: 18g RAC. 07:18 Attending Physician role handed off by Jefry Harris MD garry 07:18 Jorje Galicia MD is Attending Physician. garry 08:10 Primary Nurse role handed off by Christian Phillips RN bd 09:12 Alba Rayo, MANUEL is Primary Nurse. vg1 09:26 CT Head C Spine In Process Unspecified. EDMS 11:53 Primary Nurse role handed off by Alba Rayo, MANUEL tp1 11:53 Ethel Terry RN is Primary Nurse. tp1 12:10 No provider procedures requiring assistance completed. tp1 17:33 IV discontinued, intact, bleeding controlled, No redness/swelling at site. Pressure tp1 dressing applied. Administered Medications: 09:07 Drug: Zofran (Ondansetron) 4 mg Route: IVP; Site: right antecubital; ap3 11:46 Follow up: Response: No adverse reaction ap3 09:08 Drug: morphine 2 mg Route: IVP; Infused Over: 4 mins; Site: right antecubital; ap3 11:46 Follow up: Response: Pain is decreased ap3 Medication: 12:09 VIS not applicable for this client. tp1 Outcome: 08:46 Discharge ordered by . garry 17:58 Discharged to home via ambulance. tp1 17:58 Condition: good 17:58 Discharge instructions given to patient, Instructed on discharge instructions, follow up and referral plans. Demonstrated understanding of instructions, follow-up care. 17:59 Patient left the ED. tp1 Signatures: Dispatcher [employer] EDMS Maria L Ketn Corey, MD MD cha Rittger, Kevin, MD MD kdr Prokisch, Amanda RN RN ap3 Viri Mazariegos 2 Alba Rayo, RN RN vg1 Christian Phillips RN RN as6 Ethel Terry RN RN tp1 Corrections: (The following items were deleted from the chart) 08:25 08:25 BP 117 / 75; Pulse 64bpm; Pulse Ox 98% RA; ap3 ap3 12:02 09:35 Reassessment: gave Dr. Hutchinson verbal consent for blood transfusion. tp1 tp1 13:24 12:00 Reassessment: Patient appears in no apparent distress at this time. No changes tp1 from previously documented assessment. Patient is alert, oriented x 3, equal unlabored respirations, skin warm/dry/pink. no adverse reaction to blood transfusion noted tp1 13:25 10:35 Reassessment: No changes from previously documented assessment. Patient is alert, tp1 oriented x 3, equal unlabored respirations, skin warm/dry/pink. resting in bed with eyes closed, tp1 15:01 13:35 Reassessment: second unit of PRBC administered tp1 tp1 15:28 13:35 BP 123 / 81; Pulse 64bpm; Resp 16bpm; Pulse Ox 98% RA; Temp 98.8F Temporal; tp1 tp1 15:29 13:35 Reassessment: second unit of PRBC administered, please refer to transfusion tp1 record tp1
[2022-02-14] MEDS ORDERED: ONDANSETRON 4 MG/2 ML VIAL ONE (09:11)
[2022-02-14] MEDS ORDERED: MORPHINE 2 MG/ML SYR ONE (09:11)
--- NOTE | 2022-02-14 09:40 | RAD REPORT ---
EXAM DESCRIPTION: CT - [id number] - 02/14/2022 9:24 am CLINICAL HISTORY: pain, headache, history of brain tumors with chemotherapy and radiation, hypertens ion COMPARISON: Head Brain Wo Cont dated 10/29/2021; Soft Tissue Neck W/Contr dated 10/25/2021 TECHNIQUE: Axial 5 mm thick images of the head were obtained. Axial 2 mm thick images of the cervic al spine were obtained with sagittal and coronal reconstruction images generated and reviewed. All CT scans are performed using dose optimization technique as appropriate and may include automated exposure control or mA/KV adjustment according to patient size. FINDINGS: No intracranial hemorrhage, mass, edema or acute intracranial finding. No suspicion for ac [place] infarction. No cortical edema or sulcal effacement. Atrophy changes are present. Scattered chroni c ischemic change seen in the cerebral white matter. Ventricles are in proportion to any volume loss. Mastoid air cells and paranasal sinuses are clear. No globe or orbit abnormality seen. Cervical bodies are normal in height and AP alignment. There is left lateral tilt of the cervical spi ne. Degenerative changes are present at the C6-7 disc level with endplate spurring and moderately lar ge Schmorl's node. Mild disc space narrowing at C6-7. No fracture or acute bony abnormality. Central canal detail is inherently limited. Right-sided neck soft tissues are asymmetric but not adequately visualized on the CT head and cervica l spine examination. The approximately 15 millimeter sized area of air and soft tissue along the post erior margin of the mandibular ramus. No specific sinus or track extending to the oropharynx. IMPRESSION: No hemorrhage, edema or acute intracranial finding. No abnormality seen for severe heada roni etiology. Paranasal sinuses and mastoid air cells are clear of any suspicious finding. Cervical spine degenerative change without acute finding. Focal air in the soft tissues along the posterior margin right ramus of the mandible. Fully history of the patient's cancer in treatment is not known. This could be post therapy necrotic tissue or possibly small abscess. There may be a tract that extends to the oropharynx that is not annika nadeen evident on this CT examination.
[2022-02-14] MEDS ORDERED: NA CHLORIDE 0.9% 250 ML ONE (09:54)
[2022-02-15 02:56] VITALS: TEMP 98.8
[2022-02-15 03:01] VITALS: BP 138/91; O2SAT 100
== END 2022-02-14 17:59 | disposition home or self-care (01) ==
LOC: ER 04:51
PROC: 30233N1 Transfusion of Nonautologous Red Blood Cells into Peripheral Vein, Percutaneous Approach (ICD-10-PCS; principal; 2022-02-14)
DX: C76.0 Malignant neoplasm of head, face and neck (principal); C02.9 Malignant neoplasm of tongue, unspecified; D62 Acute posthemorrhagic anemia; R53.1 Weakness; I10 Essential (primary) hypertension; Z20.822 Contact with and (suspected) exposure to COVID-19
CPT/HCPCS: 85025; 36415; 86900; 86850; 85610; 86901; 85730; 83690; 80053; 70450; 72125; 87811; 36430; J2270; P9016 ×2; J7050; J2405; 96374; 96375; 99284

== ENCOUNTER 2022-02-23 12:15 | Emergency (ER) | payer OTHER ==
[2022-02-23] MEDS ORDERED: D50W 25 GM/50 ML SYRINGE IV ONE (12:16)
--- OUTSIDE RECORDS SUMMARY | 2022-02-23 12:19 | XMS REPORT | Continuity of Care Document ---
:1955 Author Organization [facility] t Address [address] [place] [address] Dr. Broderick [address] [place] [id number] Care Team Providers Name Role Phone LUIS ALFREDO Attending Clinician Unavailable PRABHAKARESTEFANÍACANDIDOISABELLA Admitting Clinician Unavailable Payers Payer Name Policy Type Policy Number Effective Date Expiration Date S [facility] [id number] 2021 (MEDICARE 00:00:00 REPLACEMENT HMO) Problems This patient has no known problems. Allergies, Adverse Reactions, Alerts This patient has no known allergies or adverse reactions. Medications This patient has no known medications. Procedures This patient has no known procedures. Encounters Start End Encounter Admission Attending Care Care Encounter Source Date/Time Date/Time Type Type Clinicians Facility Department ID 2021-11-03 2021-11-03 Outpatient [facility] [id number] 09:01:00 09:01:00 [id number] [facility] 2021-08-22 2021-08-22 Outpatient FERDONN SHI [facility] [id number] 02:28:00 02:28:00 [id number] 2021-04-27 2021-04-27 Outpatient NESTOR KYEDITH [facility] [id number] 11:29:00 11:29:00 HN [id number] Results This patient has no known results.
--- NOTE | 2022-02-23 13:05 | ER ---
Nurse's Notes [facility] Name: Sam Camacho Age: 66 yrs Sex: Male : 1955 Arrival Date: 02/23/2022 Time: 12:17 Bed 2 Private MD: Diagnosis: Hemorrhage from throat-cancer;Hypotension, unspecified;Acute respiratory failure;Cardiac arrest due to other underlying condition-massive oropharyngeal hemorrhage,respiratory failure Presentation: 02/23 12:18 Chief complaint: EMS states: BLEEDING FROM THROAT TUMOR, 1L EBL ON SCENE. Coronavirus bp screen: At this time, the client does not indicate any symptoms associated with coronavirus-19. Ebola Screen: No symptoms or risks identified at this time. Initial Sepsis Screen: Does the patient meet any 2 criteria? No. Patient's initial sepsis screen is negative. Does the patient have a suspected source of infection? No. Patient's initial sepsis screen is negative. Risk Assessment: Do you want to hurt yourself or someone else? Patient reports no desire to harm self or others. Onset of symptoms is unknown. Care prior to arrival: CPR via thumper performed by EMS IV initiated. 20 GA, in the left antecubital area. 12:18 Method Of Arrival: EMS: [facility] bp 12:18 Acuity: JOANNE 1 bp Triage Assessment: 12:20 General: Appears UNRESPONSIVE. Behavior is unresponsive. Pain: Unable to use pain bp scale. Patient is unresponsive. EENT: No deficits noted. Neuro: Level of Consciousness is unresponsive. Cardiovascular: Rhythm is sinus rhythm. Respiratory: Airway via oral intubation. GI: No deficits noted. : No deficits noted. Derm: No deficits noted. Musculoskeletal: No deficits noted. Historical: - Allergies: 12:20 No Known Allergies; bp - PMHx: 12:20 Brain tumors; Cancer; chemotherapy; Hypertensive disorder; radiation; bp - PSHx: 12:20 jaw surgery; bp - Immunization history:: Adult Immunizations unknown. - Social history:: Smoking status: unknown. - Family history:: not pertinent. Screenin:23 Abuse screen: Denies threats or abuse. Denies injuries from another. Nutritional bp screening: No deficits noted. Tuberculosis screening: No symptoms or risk factors identified. Fall Risk None identified. Assessment: 12:17 General: Appears ill, Behavior is unresponsive. Cardiovascular: Rhythm is sinus rhythm. mb8 12:23 General: [employer]. bp 12:51 General: [employer] ref. # [id number]. mb8 Vital Signs: 12:24 BP 87 / 41; Pulse 80; bp 12:25 BP 32 / 20; Pulse 73; Resp 12 A; mb8 Vitals: 12:25 Cardiac Rhythm Assessment V fib. mb8 12:27 Cardiac Rhythm Assessment Junctional rhythm. mb8 12:29 Cardiac Rhythm Assessment Asytole. mb8 ED Course: 12:17 Patient arrived in ED. am2 12:17 Denis Perry, RN is Primary Nurse. bp 12:17 Assist ventilation with Ambu bag. mb8 12:19 Triage completed. bp 12:20 Arm band placed on. bp 12:21 Inserted saline lock: 20 gauge in left forearm, using aseptic technique. mb8 12:23 Patient has correct armband on for positive identification. Bed in low position. Call bp light in reach. Side rails up X2. Client placed on continuous cardiac and pulse oximetry monitoring. NIBP monitoring applied. 12:30 Jorje Galicia MD is Attending Physician. garry 13:00 Jorje Galicia MD is Pronouncing Provider. garry 14:43 [place] [facility] called to collect pt. em1 Administered Medications: No medications were administered Medication: 12:23 VIS not applicable for this client. bp Outcome: 12:52 Patient : Time of 12:30 Pronounced by Jorje lyon8 15:20 Patient left the ED. mb8 Signatures: Jorje Galicia MD MD cha Martinez, Eric em1 Eva Cam am2 Denis Perry, RN RN Robert Russo RN RN mb8
--- NOTE | 2022-02-23 13:05 | EDPHYS ---
Physician Documentation [facility] Name: Sam Camacho Age: 66 yrs Sex: Male : 1955 Arrival Date: 02/23/2022 Time: 12:17 Bed 2 Private MD: ED Physician Jorje Galicia HPI: 02/23 12:53 This 66 yrs old Male presents to ER via EMS with complaints of BLEEDING FROM garry THROAT TUMOR. 12:53 The patient presents with oral cancer, hemorrhage. The problem is located in the uvula, garry left aspect of posterior pharynx and right aspect of posterior pharynx. Onset: The symptoms/episode began/occurred just prior to arrival, this morning. Duration: The symptoms are continuous, and are markedly worse than the original presentation. Modifying factors: The symptoms are alleviated by nothing, the symptoms are aggravated by nothing. Preceding the arrest, the patient hemorrhage. The arrest occurred at home. Pre-hospital course: EMS care prior to arrival: initiation of ACLS, peripheral IV, intubation oxygen, 100% by ET tube. EMS on scene time was unknown. Associated signs and symptoms: Pertinent positives: oral hemorrhage. Historical: - Allergies: 12:20 No Known Allergies; bp - PMHx: 12:20 Brain tumors; Cancer; chemotherapy; Hypertensive disorder; radiation; bp - PSHx: 12:20 jaw surgery; bp - Immunization history:: Adult Immunizations unknown. - Social history:: Smoking status: unknown. - Family history:: not pertinent. 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 garry Exam: 12:53 Cardiovascular: Rate: actual rate is 0 bpm, Rhythm: asystole, Pulses: not palpable, [facility] Heart sounds: none, Edema: is not appreciated, JVD: is not appreciated. 12:53 Respiratory: Respiratory rate: no respirations, intubated garry Vital Signs: 12:24 BP 87 / 41; Pulse 80; bp 12:25 BP 32 / 20; Pulse 73; Resp 12 A; mb8 MDM: 12:30 Patient medically screened. garry 12:59 Differential diagnosis: arrythmia, cardiac arrest, respiratory arrest, asphyxiation. garry Data reviewed: vital signs, nurses notes, EMS record. 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 Test interpretation: by ED physician or midlevel provider:. Administered Medications: No medications were administered Disposition Summary: 02/23/22 13:04 Patient Location: Home garry Pronouncing Physician: Jorje Galicia cha Time of : 12:30 02/23/2022 garry Diagnosis - Hemorrhage from throat - cancer garry - Hypotension, unspecified garry - Acute respiratory failure garry - Cardiac arrest due to other underlying condition - massive oropharyngeal garry hemorrhage,respiratory failure Signatures: Jorje Galicia MD MD cha Peltier, Brian, RN RN bp
[2022-02-25 05:27] VITALS: BP 32/20
== END 2022-02-23 15:20 | disposition expired ==
LOC: ER 12:15
DX: J96.00 Acute respiratory failure, unspecified whether with hypoxia or hypercapnia (principal); I46.8 Cardiac arrest due to other underlying condition; C06.9 Malignant neoplasm of mouth, unspecified; I95.9 Hypotension, unspecified; I10 Essential (primary) hypertension
CPT/HCPCS: 82947; 99291